=== PATIENT | female | born 1960 | race Caucasian/White ===

== ENCOUNTER → 2018-11-21 | Outpatient (CLI) | payer BC, OTHER ==
[~2018-11-21] MED LIST: IBUP-2704 PO; NO ROUTINE MEDS; OXYC-865 PO
--- NOTE | 2018-11-21 14:38 | RADIOLOGY IMAGING REPORT ---
FACILITY: [facility] PATIENT NAME: CHARISSE CRANE : [id number] MR: [id number] V: [id number] EXAM DATE: ORDERING PHYSICIAN: NALINI LUNA TECHNOLOGIST: Brooke Barrow PROCEDURE: BILATERAL DIGITAL SCREENING MAMMOGRAM WITH CAD ASSISTED INTERPRETATION & 3D TOMOSYNTHESIS REASON FOR STUDY: Screening FAMILY HISTORY OF BREAST CANCER: Maternal Aunt BREAST PROCEDURES/TREATMENTS: None COMPARISON: 11/11/15, 12/17/14, 08/20/12, 08/04/12 VIEWS OBTAINED: Bilateral 2D & 3D full field CC & MLO BREAST DENSITY: The breasts are almost entirely fatty. MAMMOGRAM FINDINGS: The parenchymal pattern has remained stable allowing for difference in mammographic technique & patient positioning. ASSESSMENT: BIRADS 1: Negative. DIAGNOSTIC CATEGORY 1--NEGATIVE. RECOMMENDATIONS: ROUTINE MAMMOGRAM AND CLINICAL EVALUATION. Dictated by: Kaylee Prescott M.D. on 11/21/2018 at 11:54 Transcribed by: SALINA on 11/21/2018 at 14:17 Approved by: Kaylee Prescott M.D. on 11/21/2018 at 14:37 [facility]
== END ==
LOC: MAMO 00:26
PROVIDERS: ATTEND Obstetrics & Gynecology
DX: Z12.31 Encounter for screening mammogram for malignant neoplasm of breast (principal); Z80.3 Family history of malignant neoplasm of breast
CPT/HCPCS: 77063; 77067